=== PATIENT | female | born 1965 | race Asian ===

== ENCOUNTER 2017-01-17 18:44 | Emergency (ER) | payer OTHER ==
[~2017-01-17] VITALS: Ht 162.6 cm; Wt 52.2 kg
[~2017-01-17 18:44] MED LIST: OMEP20CA10 PO; [UNRECOGNIZED DRUG - CODE] PO
--- NOTE | 2017-01-17 19:02 | NUR ---
dr jackman at the bedside for eval and exam.
--- NOTE | 2017-01-17 19:18 | NUR ---
Patient refused to wait for ACI. Dr Saleh gave verbal ACI to patient and
== END 2017-01-17 19:19 | disposition home or self-care (01) ==
LOC: ER 18:44
DX: T24.102A Burn of first degree of unspecified site of left lower limb, except ankle and foot, initial encounter (principal); F17.200 Nicotine dependence, unspecified, uncomplicated; Z88.6 Allergy status to analgesic agent; X19.XXXA Contact with other heat and hot substances, initial encounter; Y99.8 Other external cause status; Y92.89 Other specified places as the place of occurrence of the external cause
CPT/HCPCS: 99281; A4217; A4663